=== PATIENT | male | born 1955 | race African-American/Black ===

== ENCOUNTER 2018-06-13 12:08 | Emergency (ER) | payer OTHER ==
--- NOTE | 2018-06-13 12:24 | EKG ---
Test Date: 2018-06-13 Test Time: 12:04:53 Oyster Planter: EMMANUEL MEASUREMENT RESULTS: Intervals: Rate: 88 NV: 190 QRSD: 82 QT: 340 QTc: 411 [place]: P: 67 NV: 190 QRS: 26 T: 52 INTERPRETIVE STATEMENTS: Normal sinus rhythm Minimal voltage criteria for LVH, may be normal variant Nonspecific T wave abnormality Abnormal ECG No previous ECG available for comparison Electronically Signed On 06-13-18 12:23:55 CDT by Darrian Fischer
[2018-06-13 12:42] LABS: Absolute Monocytes 0.5 K/uL (0.1-1.3); Absolute Neutrophil 4.5 K/uL (1.8-8.0); Basophils % 0.7 % (0-1.3); Eosinophils % 1.7 % (0-4.4); Hematocrit 40.4 % (39.6-49.0); Lymphocytes % 28.2 % (15.3-44.8); MCH 22.3 pg (27.0-35.0); MPV 8.7 fL (7.6-11.3); Monocytes % 7.5 % (3.3-12.3); RBC Red Blood Cell Count 5.78 M/uL (4.33-5.43)
[2018-06-13 12:57] LABS: Protime INR 1.08
[2018-06-13 13:05] LABS: ALT/SGPT 23 U/L (12-78); AST/SGOT 18 U/L (15-37); Albumin 3.5 g/dL (3.4-5.0); Alkaline Phosphatase 84 U/L (45-117); BUN Blood Urea Nitrogen 19 mg/dL (7-18); Bicarbonate 30 mmol/L (21-32); Bilirubin Direct < 0.1 mg/dL (0-0.2); Bilirubin Total 0.4 mg/dL (0.2-1.0); CKMB Creatine Kinase MB < 1.0 ng/mL (0.3-3.6); Creatine Phosphokinase 180 U/L (39-308); Glucose Level 85 mg/dL (74-106); Magnesium 2.1 mg/dL (1.8-2.4); NT PRO-BNP 68 pg/mL (<125); Potassium 3.6 mmol/L (3.5-5.1); Protein, Total 7.4 g/dL (6.4-8.2); Sodium Level 139 mmol/L (136-145)
--- NOTE | 2018-06-13 13:10 | RAD REPORT ---
EXAM DESCRIPTION: RAD - Chest Single View - 06/13/2018 12:58 pm CLINICAL HISTORY: CHEST PAIN Chest pain. COMPARISON: No comparisons FINDINGS: Portable technique limits examination quality. The lungs are grossly clear. The heart is normal in size. No displaced fractures. IMPRESSION: No acute intrathoracic process suspected.
--- NOTE | 2018-06-13 16:10 | EDPHYS ---
Physician Documentation [facility] Name: Mika Caldera Age: 62 yrs Sex: Male : 1955 Arrival Date: 06/13/2018 Time: 12:13 Bed 23 Private MD: ED Physician Alejandro Cabrera HPI: 06/13 12:48 This 62 yrs old Black Male presents to ER via EMS with complaints of Chest Pain. snw 12:48 The patient or guardian reports chest pain that is located primarily in the anterior snw chest wall, right. Onset: suddenly, and became persistent. The pain does not radiate. Associated signs and symptoms: The patient has no apparent associated signs or symptoms. The chest pain is described as a pressure. Duration: The patient or guardian reports a single episode, that is now resolved. Severity of pain: At its worst the pain was moderate severe. EMS care prior to arrival includes: aspirin, nitroglycerin, saline lock, supplemental oxygen. The patient has not experienced similar symptoms in the past. It is unknown whether or not the patient has recently seen a physician, uses the [facility]. Historical: - Allergies: 12:15 Codeine; ch - Home Meds: 12:20 docusate sodium 100 mg Oral tab 1 tab 2 times per day [Active]; ferrous gluconate 324 aj mg (37.5 mg iron) Oral tab twice a day [Active]; hydrochlorothiazide 12.5 mg Oral tab 1 tab once daily [Active]; meloxicam 15 mg oral tab 1 tab once daily [Active]; omeprazole 20 mg Oral TbEC daily [Active]; simvastatin 20 mg Oral tab 1 tab once daily [Active]; - PMHx: 12:15 Hypertension; ch 12:20 GERD; Arthritis; Hyperlipidemia; aj - PSHx: 12:15 knee; ch - Immunization history:: Adult Immunizations up to date, Flu vaccine is up to date. - Social history:: Smoking status: Patient/guardian denies using tobacco. - Ebola Screening: : Patient negative for fever greater than or equal to 101.5 degrees Fahrenheit, and additional compatible Ebola Virus Disease symptoms Patient denies exposure to infectious person Patient denies travel to an Ebola-affected area in the 21 days before illness onset No symptoms or risks identified at this time. ROS: 12:47 Constitutional: Negative for fever, chills, and weight loss, Eyes: Negative for injury, snw pain, redness, and discharge, ENT: Negative for injury, pain, and discharge, Neck: Negative for injury, pain, and swelling, Cardiovascular: Negative for palpitations and edema, + right sided chest pain Respiratory: Negative for shortness of breath, cough, wheezing, and pleuritic chest pain, Abdomen/GI: Negative for abdominal pain, nausea, vomiting, diarrhea, and constipation, Back: Negative for injury and pain, MS/Extremity: Negative for injury and deformity, Skin: Negative for injury, rash, and discoloration. 12:47 Neuro: Positive for headache, pressure. Exam: 12:46 Constitutional: This is a well developed, well nourished patient who is awake, alert, snw and in no acute distress. Head/Face: Normocephalic, atraumatic. Eyes: Pupils equal round and reactive to light, extra-ocular motions intact. Lids and lashes normal. Conjunctiva and sclera are non-icteric and not injected. Cornea within normal limits. Periorbital areas with no swelling, redness, or edema. ENT: Nares patent. No nasal discharge, no septal abnormalities noted. Tympanic membranes are normal and external auditory canals are clear. Oropharynx with no redness, swelling, or masses, exudates, or evidence of obstruction, uvula midline. Mucous membranes moist. Neck: Trachea midline, no thyromegaly or masses palpated, and no cervical lymphadenopathy. Supple, full range of motion without nuchal rigidity, or vertebral point tenderness. No Meningismus. Chest/axilla: Normal chest wall appearance and motion. Nontender with no deformity. No lesions are appreciated. Cardiovascular: Regular rate and rhythm with a normal S1 and S2. No gallops, murmurs, or rubs. Normal PMI, no JVD. No pulse deficits. Respiratory: Lungs have equal breath sounds bilaterally, clear to auscultation and percussion. No rales, rhonchi or wheezes noted. No increased work of breathing, no retractions or nasal flaring. Abdomen/GI: Soft, non-tender, with normal bowel sounds. No distension or tympany. No guarding or rebound. No evidence of tenderness throughout. Back: No spinal tenderness. No costovertebral tenderness. Full range of motion. Skin: Warm, dry with normal turgor. Normal color with no rashes, no lesions, and no evidence of cellulitis. MS/ Extremity: Pulses equal, no cyanosis. Neurovascular intact. Full, normal range of motion. Neuro: Awake and alert, GCS 15, oriented to person, place, time, and situation. Cranial nerves II-XII grossly intact. Motor strength 5/5 in all extremities. Sensory grossly intact. Cerebellar exam normal. Normal gait. Vital Signs: 12:15 BP 141 / 72; Pulse 74; Resp 16; Temp 98.1; Pulse Ox 99% on R/A; Weight 74.84 kg; Height ch 5 ft. 8 in. (172.72 cm); Pain 5/10; 13:42 BP 114 / 79; Pulse 83; Resp 17; Pulse Ox 98% on R/A; aj 14:35 BP 121 / 76; Pulse 74; Resp 15; Pulse Ox 100% on R/A; aj 15:00 BP 122 / 78; Pulse 75; Resp 18; Pulse Ox 100% on R/A; Pain 0/10; mg2 16:29 BP 123 / 78; Pulse 78; Resp 18; Pulse Ox 100% on R/A; Pain 0/10; mg2 12:15 Body Mass Index 25.09 (74.84 kg, 172.72 cm) ch MDM: 12:23 Patient medically screened. w 16:19 ECG:. The patient was not given aspirin in the Emergency Department. Administered by [facility]. Data reviewed: vital signs, nurses notes, lab test result(s), EKG, radiologic studies. Counseling: I had a detailed discussion with the patient and/or guardian regarding: the historical points, exam findings, and any diagnostic results supporting the discharge/admit diagnosis, lab results, radiology results, the need for outpatient follow up, to return to the emergency department if symptoms worsen or persist or if there are any questions or concerns that arise at home. Special discussion: Based on the patient's history, exam, and Dx evaluation, there is no indication for emergent intervention or inpatient Tx. It is understood by the patient/guardian that if the Sx's persist or worsen they need to return immediately for re-evaluation. Based on the history and exam findings, there is no indication for further emergent testing or inpatient evaluation. I discussed with the patient/guardian the need to see the transportation equipment painter for further evaluation of the symptoms. I discussed with the patient/guardian the need to see the primary care provider for further evaluation of the symptoms. 06/13 12:22 Order name: Basic Metabolic Panel; Complete Time: 13:06 snw 06/13 12:22 Order name: CBC with Diff; Complete Time: 12:50 snw 06/13 12:22 Order name: Ckmb; Complete Time: 13:06 snw 06/13 12:22 Order name: CPK; Complete Time: 13: snw 06/13 12:22 Order name: LFT's; Complete Time: 13: snw 06/13 12:22 Order name: Magnesium; Complete Time: 13: snw 06/13 12:22 Order name: NT PRO-BNP; Complete Time: 13: snw 06/13 12:22 Order name: PT-INR; Complete Time: 13:04 snw 06/13 12:22 Order name: Ptt, Activated; Complete Time: 13:04 snw 06/13 12:22 Order name: Troponin (emerg Dept Use Only); Complete Time: 13:04 w 06/13 12:22 Order name: XRAY Chest (1 view); Complete Time: 13:12 w 06/13 15:08 Order name: Troponin (emerg Dept Use Only); Complete Time: 16:05 snw 06/13 15:08 Order name: Ckmb; Complete Time: 16:12 w 06/13 15:08 Order name: CPK; Complete Time: 16:12 w 06/13 12:22 Order name: EKG; Complete Time: 12:22 w 06/13 12:22 Order name: Cardiac monitoring; Complete Time: 12:30 w 06/13 12:22 Order name: EKG - Nurse/Tech; Complete Time: 12:30 w 06/13 12:22 Order name: IV Saline Lock; Complete Time: 12:30 w 06/13 12:22 Order name: Labs collected and sent; Complete Time: 12:30 w 06/13 12:22 Order name: O2 Per Protocol; Complete Time: 12:30 snw 06/13 12:22 Order name: O2 Sat Monitoring; Complete Time: 12:30 w 06/13 15:08 Order name: EKG; Complete Time: 15:08 snw EC:19 Rate is 66 beats/min. Rhythm is regular. QRS [place] is Normal. QRS interval is normal. No snw ST changes noted. Clinical impression: Normal ECG. No change from previous ECG on June 13, 2018. Interpreted by me. Reviewed by me. Administered Medications: No medications were administered Disposition: 16:36 Co-signature as Attending Physician, Alejandro Cabrera MD I agree with the assessment and kdr plan of care. Disposition: 06/13/18 16:09 Discharged to Home. Impression: Chest pain, unspecified. - Condition is Stable. - Discharge Instructions: Nonspecific Chest Pain, Aspirin and Your Heart. - Prescriptions for orphenadrine citrate 100 mg Oral Tablet Sustained Release - take 1 tablet by ORAL route 2 times per day As needed; 20 tablet. - Medication Reconciliation Form, Thank You Letter, Antibiotic Education, Prescription Opioid Use form. - Follow up: Emergency Department; When: As needed; Reason: Worsening of condition. Follow up: Private Physician; When: 2 - 3 days; Reason: Recheck today's complaints, Continuance of care, Re-evaluation by your physician. - Problem is new. - Symptoms are resolved. Signatures: Dispatcher [employer] EDMS Melvi Bolivar RN RN Riya Najera RN RN aj Rittger, Kevin, MD MD [facility] Judith Liu, IN HOME SALES CONSULTANT-C IN HOME SALES CONSULTANT-Csnw Percy Pérez RN RN mg2 Corrections: (The following items were deleted from the chart) 16:09 16:07 Chart complete. snw snw 16:29 16:09 06/13/2018 16:09 Discharged to Home. Impression: Chest pain, unspecified. mg2 Condition is Stable. Forms are Medication Reconciliation Form, Thank You Letter, Antibiotic Education, Prescription Opioid Use. Follow up: Emergency Department; When: As needed; Reason: Worsening of condition. Follow up: Private Physician; When: 2 - 3 days; Reason: Recheck today's complaints, Continuance of care, Re-evaluation by your physician. Problem is new. Symptoms are resolved. snw
--- NOTE | 2018-06-13 16:10 | ER ---
Nurse's Notes [facility] Name: Mika Caldera Age: 62 yrs Sex: Male : 1955 Arrival Date: 06/13/2018 Time: 12:13 Bed 23 Private MD: Diagnosis: Chest pain, unspecified Presentation: 06/13 12:13 Presenting complaint: Patient states: chest pain started a few hours ago, mainly on L ch side, worse with deep breath, on the inspiration. EMS states: 12 L NSR, pt given asa 324 and 1 SL nitro spray in route. pt reports no change in condition. vs stable, went from 160/85 to 148/62 with nitro. Transition of care: patient was not received from another setting of care. Onset of symptoms was June 13, 2018 at 11:00. Risk Assessment: Do you want to hurt yourself or someone else? Patient reports no desire to harm self or others. Initial Sepsis Screen: Does the patient meet any 2 criteria? No. Patient's initial sepsis screen is negative. Does the patient have a suspected source of infection? No. Patient's initial sepsis screen is negative. Care prior to arrival: Medication(s) given:. 12:13 Method Of Arrival: EMS: [facility] 12:13 Acuity: LUIS ENRIQUE 3 ch Triage Assessment: 12:15 General: Appears in no apparent distress. comfortable, Behavior is calm, cooperative, ch appropriate for age. Pain: Complains of pain in left lateral anterior chest and left lateral posterior chest. Historical: - Allergies: 12:15 Codeine; ch - Home Meds: 12:20 docusate sodium 100 mg Oral tab 1 tab 2 times per day [Active]; ferrous gluconate 324 aj mg (37.5 mg iron) Oral tab twice a day [Active]; hydrochlorothiazide 12.5 mg Oral tab 1 tab once daily [Active]; meloxicam 15 mg oral tab 1 tab once daily [Active]; omeprazole 20 mg Oral TbEC daily [Active]; simvastatin 20 mg Oral tab 1 tab once daily [Active]; - PMHx: 12:15 Hypertension; ch 12:20 GERD; Arthritis; Hyperlipidemia; aj - PSHx: 12:15 knee; ch - Immunization history:: Adult Immunizations up to date, Flu vaccine is up to date. - Social history:: Smoking status: Patient/guardian denies using tobacco. - Ebola Screening: : Patient negative for fever greater than or equal to 101.5 degrees Fahrenheit, and additional compatible Ebola Virus Disease symptoms Patient denies exposure to infectious person Patient denies travel to an Ebola-affected area in the 21 days before illness onset No symptoms or risks identified at this time. Screenin:28 Abuse screen: Denies threats or abuse. Denies injuries from another. Nutritional aj screening: No deficits noted. Tuberculosis screening: No symptoms or risk factors identified. Fall Risk None identified. Assessment: 12:28 General: Appears in no apparent distress. comfortable, Behavior is calm, cooperative, aj appropriate for age. Pain: Complains of pain in anterior aspect of right upper chest, mid-sternal area and right breast Pain does not radiate. Pain began 4 hours ago. Aggravated by increased activity, repositioning. Neuro: Level of Consciousness is awake, alert, obeys commands, Oriented to person, place, time, situation, Appropriate for age Acute Care Surgeon are equal bilaterally Moves all extremities. Full function Speech is normal, Facial symmetry appears normal. Cardiovascular: Reports chest pain, Capillary refill < 3 seconds in bilateral fingers Patient's skin is warm and dry. Respiratory: Reports pain with respiration Airway is patent Respiratory effort is even, unlabored, Respiratory pattern is regular, symmetrical. Derm: Skin is intact, is healthy with good turgor, Skin is pink, warm \T\ dry. normal. 13:42 Reassessment: Patient appears in no apparent distress at this time. No changes from aj previously documented assessment. Patient and/or family updated on plan of care and expected duration. Pain level reassessed. Patient is alert, oriented x 3, equal unlabored respirations, skin warm/dry/pink. Patient denies pain at this time. 15:01 Reassessment: Patient appears in no apparent distress at this time. Patient and/or mg2 family updated on plan of care and expected duration. Pain level reassessed. Patient is alert, oriented x 3, equal unlabored respirations, skin warm/dry/pink. Vital Signs: 12:15 BP 141 / 72; Pulse 74; Resp 16; Temp 98.1; Pulse Ox 99% on R/A; Weight 74.84 kg; Height ch 5 ft. 8 in. (172.72 cm); Pain 5/10; 13:42 BP 114 / 79; Pulse 83; Resp 17; Pulse Ox 98% on R/A; aj 14:35 BP 121 / 76; Pulse 74; Resp 15; Pulse Ox 100% on R/A; aj 15:00 BP 122 / 78; Pulse 75; Resp 18; Pulse Ox 100% on R/A; Pain 0/10; mg2 16:29 BP 123 / 78; Pulse 78; Resp 18; Pulse Ox 100% on R/A; Pain 0/10; mg2 12:15 Body Mass Index 25.09 (74.84 kg, 172.72 cm) ED Course: 12:13 Patient arrived in ED. 12:14 Triage completed. 12:15 Arm band placed on left wrist. Patient placed in an exam room, on a stretcher, on electronic device monitor, on pulse oximetry. 12:17 Riya Menjivar, GIANNA is Primary Nurse. aj 12:21 Judith Liu FNP-C is PHCP. snw 12:21 Alejandro Cabrera MD is Attending Physician. snw 12:28 Patient has correct armband on for positive identification. Placed in gown. Bed in low aj position. Call light in reach. Side rails up X 1. electronic device monitor on. Pulse ox on. NIBP on. 12:28 Inserted saline lock: 20 gauge in right antecubital area, using aseptic technique. aj Blood collected. Patient maintains SpO2 saturation greater than 95% on room air. 12:36 EKG done, by information technology audit manager. reviewed by Alejandro Cabrera MD. at1 12:57 X-ray completed. Portable x-ray completed in exam room. Patient tolerated procedure ml well. 12:58 XRAY Chest (1 view) In Process Unspecified. EDMS 15:15 Repeat lab(s) drawn. by ks, sent to lab. mg2 15:16 Percy Pérez, GIANNA is Primary Nurse. mg2 15:26 EKG done, by information technology audit manager. reviewed by Judith BUSH. sm3 16:28 No provider procedures requiring assistance completed. IV discontinued, intact, mg2 bleeding controlled, No redness/swelling at site. Pressure dressing applied. Administered Medications: No medications were administered Outcome: 16:09 Discharge ordered by MD. snw 16:28 Discharged to home ambulatory. mg2 16:28 Condition: stable 16:28 Discharge instructions given to patient, Instructed on discharge instructions, follow up and referral plans. medication usage, Demonstrated understanding of instructions, follow-up care, medications, Prescriptions given X 1. 16:29 Patient left the ED. mg2 Signatures: Dispatcher [employer] EDMelvi Carrion, RN Riya Vaca ch, RN RN aj Therrien, Shelly, LABORER [employer]-C LABORER [employer]-Csnw Bia Crowder Amanda, tumblers supervisor EKG Tat1 Percy Pérez RN RN [facility] [place] Cynthia Szymanski 3
[2018-06-13 16:11] LABS: CKMB Creatine Kinase MB < 1.0 ng/mL (0.3-3.6); Creatine Phosphokinase 176 U/L (39-308)
--- NOTE | 2018-06-14 16:20 | EKG ---
Test Date: 2018-06-13 Test Time: 15:20:22 Trommel Tender: EMMANUEL MEASUREMENT RESULTS: Intervals: Rate: 66 MT: 194 QRSD: 86 QT: 378 QTc: 396 [place]: P: 65 MT: 194 QRS: 27 T: 46 INTERPRETIVE STATEMENTS: Normal sinus rhythm Minimal voltage criteria for LVH, may be normal variant Borderline ECG Compared to ECG 06/13/2018 12:04:53 T-wave abnormality no longer present Electronically Signed On 06-14-18 16:14:55 CDT by Darrian Fischer
== END 2018-06-13 16:29 | disposition home or self-care (01) ==
LOC: ER 12:08
DX: R07.9 Chest pain, unspecified (principal); I10 Essential (primary) hypertension; E78.5 Hyperlipidemia, unspecified; Z88.5 Allergy status to narcotic agent
CPT/HCPCS: 36415; 71045; 80048; 80076; 82550; 82553; 83735; 83880; 84484; 85025; 85610; 85730; 93005; 99285